=== PATIENT | male | born 1965 | race Caucasian/White ===

== ENCOUNTER → 2017-05-13 | Outpatient (CLI) | payer OTHER ==
[~2017-05-13] MED LIST: ASCO-213 PO; CALC250T PO; CHOL3000 PO; CHON400C PO; FEXO180T72 PO; GLUC1500 PO; HYDR200T PO; L.AC1CAP4 PO; MULT-516 PO; OMEG1CAP23 PO; OMNIPAQUE 350 MG/ML, 100ML BOTTLE ONE; OXYC-302 PO; VITA400T6 PO
== END | disposition home or self-care (01) ==
LOC: CFH 11:25
PROVIDERS: ATTEND Colon & Rectal Surgery
DX: C18.9 Malignant neoplasm of colon, unspecified (principal); N28.1 Cyst of kidney, acquired; R91.1 Solitary pulmonary nodule
CPT/HCPCS: 71260; 74177; Q9967

== ENCOUNTER → 2017-11-07 | Outpatient (CLI) | payer OTHER | END | disposition home or self-care (01) | LOC: CFH 12:25 | PROVIDERS: ATTEND Colon & Rectal Surgery | DX: N20.0 Calculus of kidney (principal); C18.9 Malignant neoplasm of colon, unspecified; Z90.49 Acquired absence of other specified parts of digestive tract | CPT/HCPCS: 71260; 74177; Q9967 ==

== ENCOUNTER → 2018-06-04 | Outpatient (CLI) | payer OTHER ==
[~2018-06-04] MED LIST changes: -GLUC1500 PO; +GLUC15006 PO; -HYDR200T PO; +HYDR200T72 PO
== END | disposition home or self-care (01) ==
LOC: CFH 09:54
PROVIDERS: ATTEND Colon & Rectal Surgery
DX: C18.9 Malignant neoplasm of colon, unspecified (principal); R91.8 Other nonspecific abnormal finding of lung field
CPT/HCPCS: 71260; 74177; Q9967